=== PATIENT | female | born 1960 | race Caucasian/White ===

== ENCOUNTER → 2023-11-28 08:09 | Outpatient (REF) | payer OTHER, SELFPAY | LOC: RAD 08:09 | PROVIDERS: ATTENDING PHYSICIAN Nurse Practitioner Adult Health | DX: Z12.31 Encounter for screening mammogram for malignant neoplasm of breast (principal); Z78.0 Asymptomatic menopausal state; M85.80 Other specified disorders of bone density and structure, unspecified site; M25.551 Pain in right hip | CPT/HCPCS: 73502; 77063; 77067; 77080 ==

== ENCOUNTER 2023-12-10 05:22 | Emergency (ER) | payer OTHER, SELFPAY ==
[2023-12-10 05:24] VITALS: BP 134/84
--- NOTE | 2023-12-10 07:08 | ED.GENMED ---
History of Present Illness
General
Chief Complaint: Extremity Pain (non-traumatic)
Source: patient and spouse
Exam Limitations: none
Time Seen by Provider: 12/10/23 06:32
Nursing documentation reviewed up to this point in time: agreed with
Travel History
Have you had any contact with someone who has COVID-19?: No
Do you have any symptoms of coronavirus? Fever > 100 degrees, chills, cough, shortness of breath, sore throat, loss of taste or smell, muscle aches, or headache?: No
History of Present Illness
History of Present Illness:
Patient presents to ED after waking up this morning at 2 AM with sudden onset of right lower leg pain. Denies any pain when she went to sleep last night. Denies fever or chills. Denies recent injury. However, patient has had approximately 1 week
history of intermittent right leg cramp pain, which has been evaluated by her primary care physician. An outpatient x-ray revealed right hip arthritis, and she has been referred to see an orthopedic surgeon as an outpatient. In addition, 2 weeks
ago, patient reports receiving normal blood work, as part of annual physical exam with her primary care physician. Denies recent change in level activities. Denies back pain. Denies loss of sensation or weakness. Denies urinary or bowel
incontinence. Denies history of blood clots. Denies recent travel.
Review of Systems
Review of Systems
Allergies reviewed?: Yes
All Other Systems: ROS reviewed and negative except as documented in HPI and ROS
Constitutional: Reports no symptoms
Musculoskeletal: Reports other (leg pain); Denies back pain
Skin: Reports no symptoms
Neurological: Reports no symptoms; Denies weakness or numbness
Phy Exam
Physical Exam
Physical Exam:
Physical Exam
General: no apparent distress, not acutely ill. afebrile
Head: nc/at. eomi
Neck: supple. no meningeal signs.
Neuro: alert and oriented. no focal neurological deficits
Skin: no rash
Psychiatric: well kept. interactive and cooperative
Extremities: mild tenderness to palpation over right lower anterior leg, along prox tibia, without erythema/swelling/ecchymosis. no calf tenderness. normal DPP
Course
Orders/Labs/Results
Orders:
Orders
12/10/23 06:50
CR Leg Tibia/fibula Right 2 Vw Urgent
Comment:
Reason For Exam: right anterior leg pain
US Legs, Right [US Periph Venous LOWER Ext RT] Urgent
Comment:
Reason For Exam: pain
12/10/23 06:51
Acetaminophen [Tylenol] 650 mg PO NOW STA
Vital Signs
Initial and Last Documented VS:
Initial Vital Signs
Temp Pulse Resp BP Pulse Ox
98 F 60 24 134/84 94
12/10/23 05:24 12/10/23 05:24 12/10/23 05:24 12/10/23 05:24 12/10/23 05:24
Last Documented Vital Signs
Temp Pulse Resp BP Pulse Ox
98 F 60 24 134/84 94
12/10/23 05:24 12/10/23 05:24 12/10/23 05:24 12/10/23 05:24 12/10/23 05:24
MDM/Problems Addressed
MDM/Problems Addressed:
Ultrasound lower extremity: No DVT
X-ray: Findings suggestive of what appears to be a benign lesion along tibia. Recommended repeat x-ray versus MRI as an outpatient. Otherwise, patient is afebrile, hemodynamically stable, and nontoxic-appearing. Will recommend Tylenol/Motrin for
symptomatic relief, along with continual evaluation with PCP versus orthopedic surgeon, as an outpatient.
*Critical Care Note
Total Time (30-74mins, 75-104mins- exclusive of procedures): Not Applicable
ED Attending Note
-
Portions of this chart may have been created with voice recognition software.� Occasional wrong word or��sound alike� substitutions may have occurred due to the inherent limitations of voice recognition software.
Discharge Plan
Departure
Patient Disposition: Home (Routine Discharge)
Date of Disposition: 12/10/23
Time of Disposition: 09:29
Patient with high blood pressure during this ER visit?: Yes
Discharge Problem:
Leg pain
Instructions: Muscle and Bone Pain (DC)
Referrals:
Stephie Starks CRNP [Family Provider] -
Activity Restrictions/Additional Instructions:
As discussed, please follow-up with your primary care physician and/or orthopedic surgeon for further evaluation and treatment. In ED, ultrasound did not reveal any blood clots. X-ray revealed some findings that appear to be benign, but will
require an outpatient evaluation, including repeat x-ray or MRI.
Interventions
Interventions:
*Risk Screen - Suicide Last Done: 12/10/23 05:24
*Neglect/Abuse Screening Last Done: 12/10/23 05:24
Discharge Date and Time
Print Language: [place]
[2023-12-10] MEDS: TYLENOL 650 MG PO (07:19)
[2023-12-10 07:25] VITALS: BMI 31.4
== END 2023-12-10 10:11 | disposition home or self-care (01) ==
LOC: EMR 05:22
PROVIDERS: EMERGENCY PHYSICIAN Emergency Medicine; FAMILY PHYSICIAN Nurse Practitioner Adult Health
DX: M79.604 Pain in right leg (principal); R25.2 Cramp and spasm; R03.0 Elevated blood-pressure reading, without diagnosis of hypertension; M16.11 Unilateral primary osteoarthritis, right hip; E78.5 Hyperlipidemia, unspecified; D50.9 Iron deficiency anemia, unspecified; Z86.16 Personal history of COVID-19
CPT/HCPCS: 99284; 73590; 93971

== ENCOUNTER → 2024-04-08 17:29 | Outpatient (REF) | payer OTHER, SELFPAY | LOC: RAD 17:29 | PROVIDERS: ATTENDING PHYSICIAN Nurse Practitioner Adult Health | DX: M79.604 Pain in right leg (principal); R93.6 Abnormal findings on diagnostic imaging of limbs | CPT/HCPCS: 73590 ==

== ENCOUNTER → 2024-05-15 10:32 | Outpatient (REF) | payer OTHER, SELFPAY | LOC: RAD 10:32 | PROVIDERS: ATTENDING PHYSICIAN Orthopaedic Surgery; FAMILY PHYSICIAN Nurse Practitioner Adult Health | DX: D48.0 Neoplasm of uncertain behavior of bone and articular cartilage (principal); M86.661 Other chronic osteomyelitis, right tibia and fibula | CPT/HCPCS: 78300; A9503 ==

== ENCOUNTER → 2025-02-10 07:24 | Outpatient (REF) | payer OTHER, SELFPAY | LOC: HWWDC 07:24 | PROVIDERS: ATTENDING PHYSICIAN Nurse Practitioner Adult Health | DX: Z12.31 Encounter for screening mammogram for malignant neoplasm of breast (principal) | CPT/HCPCS: 77063; 77067 ==